=== PATIENT | female | born 1990 | race Hispanic/Latino ===

== ENCOUNTER 2016-11-30 12:39 | Emergency (ER) | payer MEDICAID ==
[2016-11-30 14:49] LABS: Bacteria,Urine 1+ /HPF (Negative); Bilirubin,Urine NEG (Negative); Blood,Urine LG (Negative); Ketones,Urine NEG (Negative); Leukocyte Esterase,Urine MOD (Negative); Nitrite,Urine NEG (Negative); Urobilinogen,Urine < 2.0 mg/dL (<2.0)
[2016-11-30 14:50] LABS: RBC,Urine > 182.0 /HPF (0.0-6.0); WBC,Urine < 1.0 /HPF (0.0-6.0)
--- NOTE | 2016-11-30 14:51 | Emergency Department Report ---
Entered by DENNIS MANCERA, acting as scribe for BRODIE AGRAWAL NP. Chief Complaint: Urogenital-Female Stated Complaint: BLOODY URINE/ABD PAIN Time Seen by Provider: 11/30/16 13:58 - HPI History of Present Illness: 26 y/o female presents c/o hematuria that started 3 days ago. Associated Sx include abd pain but pt denies any STD's. LMP was 2 weeks ago. PCP works at [facility] [employer] [employer]. NAD VSS ambulatory no neuro of focal deficits - ROS Review of Systems: as noted in HPI - Exam Vital Signs: Vital Signs 11/30/16 13:48 Temperature 98.4 F Pulse Rate 74 Respiratory 20 Rate Blood Pressure 109/76 O2 Sat by Pulse 100 Oximetry Physical Exam: as noted in HPI MSE screening note: Focused history and physical exam performed. Due to findings the following was ordered: ED Disposition for MSE Condition: Stable This documentation as recorded by the scribe,DENNIS MANCERA,accurately reflects the service I personally performed and the decisions made by me,BRODIE AGRAWAL NP.
[2016-11-30 22:14] VITALS: BP 112/72
[2016-11-30 23:29] LABS: Basophils % (Auto) 0.5 % (0.0-1.8); Eosinophils % (Auto) 1.8 % (0.0-4.3); Hematocrit 39.8 % (30.3-42.9); Hemoglobin 13.2 gm/dl (10.1-14.3); Mean Corpuscular HGB Conc 33 % (30-34); Mean Corpuscular Hemoglobin 32 pg (28-32); Mean Corpuscular Volume 96 fl (79-97); Platelet Count 235 K/mm3 (140-440); Red Blood Count 4.17 M/mm3 (3.65-5.03); White Blood Count 8.4 K/mm3 (4.5-11.0)
[2016-11-30] MEDS ORDERED: TORADOL IV ONE (23:32)
[2016-11-30] MEDS ORDERED: DILAUDID IV ONE (23:32)
[2016-11-30] MEDS ORDERED: NACL 0.9% 1000 ML 1,000 ML IV ONE (23:33)
--- NOTE | 2016-11-30 23:36 | Emergency Department Report ---
HPI - General Chief Complaint: Urogenital-Female Time Seen by Provider: 11/30/16 23:20 - HPI HPI: 26-year-old female comes in for complaint of blood in urine and abdominal pain. She is also having pain in her flanks that radiates to her pelvic area. Patient has a past medical history of Parkinson syndrome that she reports has resolved as well as a history of kidney stones. Patient reports that her last menstrual period was 11/16/2016. She currently just takes Paxil and Klonopin. She is allergic to latex pertussis and sulfur. ED Past Medical Hx - Past Medical History Previous Medical History?: Yes Hx Kidney Stones: Yes Additional medical history: Vaginal dleivery 07-04-2009 - Surgical History Past Surgical History?: Yes Additional Surgical History: D&C x 2,Tonsil removed, 3 heart ablations for Agee Parkison White syndrome, Eric hand surgery due to fx - Social History Smoking Status: Former Smoker Substance Use Type: Alcohol, Prescribed - Medications Home Medications: Home Medications Medication Instructions Recorded Confirmed Last Taken Type Paxil (Nf) 40 mg PO DAILY 11/30/16 11/30/16 11/29/16 History clonazePAM [KlonoPIN] 1 mg PO DAILY 11/30/16 11/30/16 11/29/16 History Acetaminophen/Codeine [Tylenol 1 tab PO Q4HR PRN #20 tablet 12/01/16 Unknown Rx /Codeine # 3 tab] ED Review of Systems ROS: Stated complaint: BLOODY URINE/ABD PAIN Other details as noted in HPI Constitutional: denies: chills, fever Eyes: denies: eye pain, eye discharge, vision change ENT: denies: ear pain, throat pain Respiratory: denies: cough, shortness of breath, wheezing Cardiovascular: denies: chest pain, palpitations Endocrine: no symptoms reported Gastrointestinal: denies: abdominal pain, nausea, vomiting, diarrhea Genitourinary: hematuria Musculoskeletal: back pain, other (lateral flank pain) Skin: denies: rash, lesions Neurological: denies: headache, weakness, paresthesias Psychiatric: denies: anxiety, depression Physical Exam - Physical Exam Vital Signs: Vital Signs 11/30/16 11/30/16 13:48 22:13 Temperature 98.4 F 98.0 F Pulse Rate 74 95 H Respiratory 20 18 Rate Blood Pressure 109/76 112/72 O2 Sat by Pulse 100 99 Oximetry Physical Exam: GENERAL: Alert and oriented x3, no apparent distress, Normal Gait, atraumatic. HEAD: Head is normocephalic and a-traumatic. MOUTH:Mouth is well hydrated and without lesions. Tonsils nonerythematous or swollen, Uvula midline, Tongue not elevated. Mucous membranes are moist. Posterior pharynx clear, no exudate or lesions. Patent airways. NECK: Supple. Non edematous, No carotid bruits. No lymphadenopathy or thyromegaly. LUNGS: Symetrical with respiration, No wheezing, no rales or crackles, CTAB. HEART: S1, S2 present, regular rate and rhythm without murmur, no rubs, no gallops. ABDOMEN: No organomegaly was noted,Positive bowel sounds, soft, and non- distended. . Nontender to palpation on all Quadrants, + CVA tenderness bilateral EXTREMITIES/MUSCULOSKELETAL: No cyanosis, clubbing, rash, lesions or edema. Full ROM bilaterally. UE/LE Pulses 2+ bilaterally. LE and UE 5+ strength bilaterally NEUROLOGIC: No focal Deficit, Cranial nerves II through XII are grossly intact. No loss of sensation, No facial droop, Negative rhomberg. PSYCHIATRIC: Mood is congruent with affect, denies suicidal or homicidal ideations. SKIN: Warm and dry, No lesions, No ulceration or induration present ED Course Vital Signs 11/30/16 11/30/16 13:48 22:13 Temperature 98.4 F 98.0 F Pulse Rate 74 95 H Respiratory 20 18 Rate Blood Pressure 109/76 112/72 O2 Sat by Pulse 100 99 Oximetry ED Medical Decision Making - Lab Data Result diagrams: 11/30/16 22:49 11/30/16 22:49 - Medical Decision Making Patient's been evaluated by this provider fast track. Discussed the patient that we would do a CAT scan of her abdominal and pelvic. Will place an IV insertion with normal saline 1 L and Dilaudid 1 mg as well as Toradol 15 mg IV. We will reevaluate patient. Patient verbalized understanding Critical care attestation.: If time is entered above; I have spent that time in minutes in the direct care of this critically ill patient, excluding procedure time. ED Disposition Clinical Impression: Hematuria Disposition: DISCHARGED TO HOME OR SELFCARE Is pt being admited?: No Does the pt Need Aspirin: No Condition: Stable Instructions: Acute Hematuria (ED) Additional Instructions: It's very importantly to follow up with a urologist. I have listed several below. Prescriptions: Acetaminophen/Codeine [Tylenol /Codeine # 3 tab] 1 tab PO Q4HR PRN #20 tablet PRN Reason: Pain Referrals: PRIMARY CAREMD [Primary Care Provider] - 3-5 Days LARY THOMPSON MD [Staff Physician] - 3-5 Days CHRIS BURCH MD [Referring] - 3-5 Days ADRIANNE MALDONADO MD [Referring] - 3-5 Days Forms: Work/School Release Form(ED)
[2016-11-30 23:45] LABS: Anion Gap 18 mmol/L; Blood Urea Nitrogen 9 mg/dL (7-17); Calcium 8.8 mg/dL (8.4-10.2); Carbon Dioxide 25 mmol/L (22-30); Chloride 102.7 mmol/L (98-107); Glucose 80 mg/dL (65-100); Lipase 31 units/L (13-60); Potassium 3.7 mmol/L (3.6-5.0); Sodium 142 mmol/L (137-145)
--- NOTE | 2016-12-01 00:16 | Cat Scan Report ---
FINAL REPORT PROCEDURE: CT ABDOMEN PELVIS WO CON TECHNIQUE: Computerized axial tomography of the abdomen and pelvis was performed without intravenous contrast. This study is performed without intravascular contrast material and its sensitivity for abdominal and pelvic pathology, including neoplasms, inflammation, abscess, free fluid, thrombosis, arterial dissection and infarction, is reduced compared with a contrast enhanced study. HISTORY: Right flank pain. Hematuria. COMPARISON: No prior studies are available for comparison. FINDINGS: Visualized lower thorax: No significant abnormality. Liver: Normal size and attenuation. Spleen: Normal size and attenuation. Gallbladder and biliary system: Contracted gallbladder. Pancreas: Normal. Adrenals: Normal. Kidneys: Normal. GI tract: Normal caliber air-filled 4 millimeter appendix. Lymph nodes and mesentery: Normal. Vasculature: Normal. Bladder: Normal. Reproductive organs: Mildly prominent right ovary. Peritoneum: No free fluid. Musculoskeletal structures: Schmorl's nodes of the thoracic spine. Small 4 millimeter T8 sclerotic lesion, likely bone island. Transitional lumbosacral vertebral body with lumbarization of S1. Other: Pelvic phleboliths. IMPRESSION: No CT evidence of renal/ureteral stone or obstruction. Contracted gallbladder. Normal caliber air-filled appendix. Prominent right ovary, consider pelvic ultrasound if there is continued clinical concern.
== END 2016-12-01 01:34 | disposition home or self-care (01) ==
LOC: ED 12:39
DX: R31.9 Hematuria, unspecified (principal); Z87.891 Personal history of nicotine dependence; Z91.040 Latex allergy status; Z88.2 Allergy status to sulfonamides; Z88.8 Allergy status to other drugs, medicaments and biological substances
CPT/HCPCS: 36415; 74176; 80048; 81001; 81025; 83690; 85025; 96374; 96375; 99284; J1170; J1885; J7030